=== PATIENT | female | born 1950 | race African-American/Black ===

== ENCOUNTER 2023-09-16 10:40 | Emergency (ER) | payer MEDICAID, MEDICARE ==
[~2023-09-16] VITALS: Ht 152.4 cm; Wt 88.0 kg
[~2023-09-16 10:40] MED LIST: AMLO5TAB88 PO; KEPP500 PO; LOSA25TA26 MT
[2023-09-16 10:45] VITALS: BP 170/84; RESP 18; TEMP 98.6; O2SAT 98
[2023-09-16 10:46] VITALS: PULSE 79
[2023-09-16] MEDS ORDERED: KEPP500 MT (12:35)
[2023-09-16] MEDS ORDERED: LOSA25TA26 MT (12:35)
[2023-09-16] MEDS ORDERED: AMLO5TAB88 MT (12:35)
== END 2023-09-16 12:42 | disposition home or self-care (01) ==
LOC: ER 10:40
DX: I10 Essential (primary) hypertension (principal); Z86.73 Personal history of transient ischemic attack (TIA), and cerebral infarction without residual deficits
CPT/HCPCS: 99281